=== PATIENT | male | born 1965 | race Caucasian/White ===

== ENCOUNTER 2020-05-03 19:54 | Inpatient (IN) | payer BC ==
[2020-05-03] MEDS ORDERED: MORPHINE SULFATE 2 MG/ML SYRINGE IV STA (20:41)
--- NOTE | 2020-05-03 20:43 | ED ---
General Adult HPI - General Chief complaint: Shortness of Breath Stated complaint: COVID+/Chest Pain/Vomiting/SOB/Fever Time Seen by Provider: 05/03/20 20:04 Source: patient, RN notes reviewed, old records reviewed Mode of arrival: ambulatory Limitations: no limitations - History of Present Illness Initial comments: 54-year-old male patient to ED for evaluation of coronavirus infection. Patient was diagnosed on Friday 04/27. That was the day he first began experiencing symptoms. Since then he is reporting that he has been coughing with some shortness of breath and some generalized chest pain with coughing. Patient also reports that he is a diabetic type II who is supposed to be on insulin however he has not his medication to last 9 months to see his area and does not have a doctor. He has not been checking his sugars. Systemic: Pt denies fatigue, fever/chills, rash. Pt denies weakness, night sweats, weight loss. Neuro: Pt denies headache, visual disturbances, syncope or pre-syncope. HEENT: Pt denies ocular discharge or irritation, otalgia, rhinorrhea, pharyngitis or notable lymphadenopathy. Cardiopulmonary: Pt denies heart palpitations, dyspnea on exertion. Abdominal/GI: Pt denies abdominal pain, n/v/d. : Pt denies dysuria, burning w/ urination, frequency/urgency. Denies new onset urinary or bowel incontinence. MSK: Pt denies myalgia, loss of strength or function in extremities. Neuro: Pt denies new onset weakness, paresthesias. - Related Data Home Medications Medication Instructions Recorded Confirmed No Known Home Medications 05/03/20 05/03/20 Allergies Allergy/AdvReac Type Severity Reaction Status Date / Time No Known Allergies Allergy Verified 05/03/20 22:30 Review of Systems ROS Statement: Those systems with pertinent positive or pertinent negative responses have been documented in the HPI. ROS Other: All systems not noted in ROS Statement are negative. Past Medical History Past Medical History: Diabetes Mellitus Additional Past Medical History / Comment(s): Covid Dx - 04/27/2020 History of Any Multi-Drug Resistant Organisms: None Reported Past Surgical History: Hernia Repair Additional Past Surgical History / Comment(s): eye surgery Past Psychological History: No Psychological Hx Reported Smoking Status: Never smoker Past Alcohol Use History: Occasional Past Drug Use History: None Reported General Exam - General Exam Comments Initial Comments: Constitutional: NAD, AOX3, Pt has pleasant affect. HEENT: NC/AT, trachea midline, neck supple, no lymphadenopathy. Posterior pharynx non erythematous, without exudates. External ears appear normal, without discharge. Mucous membranes moist. Eyes PERRLA, EOM intact. There is no scleral icterus. No pallor noted. Cardiopulmonary: RRR, no murmurs, rubs or gallops, no JVD noted. Lungs CTAB in anterior and posterior lee. No peripheral edema. Abdominal exam: Abdomen soft and non-distended. Abdomen non-tender to palpation in all 4 quadrants. Bowel sounds active in LLQ. No hepatosplenomegaly. No ecchymosis Neuro: CN II-XII grossly intact. No nuchal rigidity. No raccon eyes, no platt sign, no hemotympanum. No cervical spinal tenderness. MSK: No posterior calf tenderness bilaterally, homans sign negative bilaterally. Posterior tibialis and radial pulse +2 bilaterally. Sensation intact in upper and lower extremities. Full active ROM in upper and lower extremities, 5/5 stregnth. Limitations: no limitations Course Vital Signs 05/03/20 05/03/20 05/03/20 19:58 21:01 21:30 Temperature 100.9 F H 100.0 F H Pulse Rate 121 H 99 Respiratory 30 H 20 Rate Blood Pressure 108/68 109/62 O2 Sat by Pulse 97 98 Oximetry 05/03/20 22:09 Temperature Pulse Rate 93 Respiratory 20 Rate Blood Pressure 101/64 O2 Sat by Pulse 98 Oximetry Medical Decision Making - Medical Decision Making 54-year-old male patient ED for evaluation of shortness of breath cough fever. Patient diagnosed the coronavirus 6 days ago. Worsening shortness of breath. Chest pain primarily with coughing. Vital signs did display some mild tachypnea. Oxygen saturation are maintained adequately. Patient is display some mild work of breathing. CT of the chest x-ray revealed bilateral pneumonia. No pulmonary embolism. EKG is nonischemic. She'll be admitted to hospital for further evaluation. Case discussed with Dr. Mercedes. Admitting physician Dr. Alexis. - Lab Data Result diagrams: 05/03/20 20:46 05/03/20 20:46 Lab Results 05/03/20 05/03/20 05/03/20 Range/Units 20:46 20:46 20:46 WBC 5.2 (3.8-10.6) k/uL RBC 5.86 (4.30-5.90) m/uL Hgb 17.4 (13.0-17.5) gm/dL Hct 53.0 (39.0-53.0) % MCV 90.4 (80.0-100.0) fL MCH 29.7 (25.0-35.0) pg MCHC 32.9 (31.0-37.0) g/dL RDW 12.2 (11.5-15.5) % Plt Count 135 L (150-450) k/uL MPV 8.9 Neutrophils % 80 % Lymphocytes % 13 % Monocytes % 5 % Eosinophils % 1 % Basophils % 1 % Neutrophils # 4.2 (1.3-7.7) k/uL Lymphocytes # 0.7 L (1.0-4.8) k/uL Monocytes # 0.3 (0-1.0) k/uL Eosinophils # 0.0 (0-0.7) k/uL Basophils # 0.1 (0-0.2) k/uL PT 9.7 (9.0-12.0) sec INR 0.9 (<1.2) APTT 24.7 (22.0-30.0) sec D-Dimer 0.98 H (<0.60) mg/L FEU Sodium 138 (137-145) mmol/L Potassium 4.4 (3.5-5.1) mmol/L Chloride 102 (98-107) mmol/L Carbon Dioxide 27 (22-30) mmol/L Anion Gap 9 mmol/L BUN 17 (9-20) mg/dL Creatinine 1.08 (0.66-1.25) mg/dL Est GFR (CKD-EPI)AfAm >90 (>60 ml/min/1.73 sqM) Est GFR (CKD-EPI)NonAf 78 (>60 ml/min/1.73 sqM) Glucose 149 H (74-99) mg/dL Plasma Lactic Acid Quinn (0.7-2.0) mmol/L Calcium 9.2 (8.4-10.2) mg/dL Magnesium 1.8 (1.6-2.3) mg/dL Total Bilirubin 0.7 (0.2-1.3) mg/dL AST 33 (17-59) U/L ALT 26 (4-49) U/L Alkaline Phosphatase 63 (38-126) U/L Lactate Dehydrogenase 585 (313-618) U/L Troponin I (0.000-0.034) ng/mL C-Reactive Protein 22.8 H (<10.0) mg/L Total Protein 7.6 (6.3-8.2) g/dL Albumin 4.3 (3.5-5.0) g/dL Urine Color Urine Appearance (Clear) Urine pH (5.0-8.0) Ur Specific Rumely (1.001-1.035) Urine Protein (Negative) Urine Glucose (UA) (Negative) Urine Ketones (Negative) Urine Blood (Negative) Urine Nitrite (Negative) Urine Bilirubin (Negative) Urine Urobilinogen (<2.0) mg/dL Ur Leukocyte Esterase (Negative) Urine RBC (0-5) /hpf Urine WBC (0-5) /hpf Ur Squamous Epith Cells (0-4) /hpf Urine Mucus (None) /hpf Acetone, Qual Negative (Negative) Coronavirus (PCR) (Not Detectd) 05/03/20 05/03/20 05/03/20 Range/Units 20:46 20:46 21:01 WBC (3.8-10.6) k/uL RBC (4.30-5.90) m/uL Hgb (13.0-17.5) gm/dL Hct (39.0-53.0) % MCV (80.0-100.0) fL MCH (25.0-35.0) pg MCHC (31.0-37.0) g/dL RDW (11.5-15.5) % Plt Count (150-450) k/uL MPV Neutrophils % % Lymphocytes % % Monocytes % % Eosinophils % % Basophils % % Neutrophils # (1.3-7.7) k/uL Lymphocytes # (1.0-4.8) k/uL Monocytes # (0-1.0) k/uL Eosinophils # (0-0.7) k/uL Basophils # (0-0.2) k/uL PT (9.0-12.0) sec INR (<1.2) APTT (22.0-30.0) sec D-Dimer (<0.60) mg/L FEU Sodium (137-145) mmol/L Potassium (3.5-5.1) mmol/L Chloride (98-107) mmol/L Carbon Dioxide (22-30) mmol/L Anion Gap mmol/L BUN (9-20) mg/dL Creatinine (0.66-1.25) mg/dL Est GFR (CKD-EPI)AfAm (>60 ml/min/1.73 sqM) Est GFR (CKD-EPI)NonAf (>60 ml/min/1.73 sqM) Glucose (74-99) mg/dL Plasma Lactic Acid Quinn 2.6 H* (0.7-2.0) mmol/L Calcium (8.4-10.2) mg/dL Magnesium (1.6-2.3) mg/dL Total Bilirubin (0.2-1.3) mg/dL AST (17-59) U/L ALT (4-49) U/L Alkaline Phosphatase (38-126) U/L Lactate Dehydrogenase (313-618) U/L Troponin I <0.012 (0.000-0.034) ng/mL C-Reactive Protein (<10.0) mg/L Total Protein (6.3-8.2) g/dL Albumin (3.5-5.0) g/dL Urine Color Yellow Urine Appearance Clear (Clear) Urine pH 7.5 (5.0-8.0) Ur Specific Rumely 1.027 (1.001-1.035) Urine Protein 1+ H (Negative) Urine Glucose (UA) 1+ H (Negative) Urine Ketones 1+ H (Negative) Urine Blood Negative (Negative) Urine Nitrite Negative (Negative) Urine Bilirubin Negative (Negative) Urine Urobilinogen 2.0 (<2.0) mg/dL Ur Leukocyte Esterase Negative (Negative) Urine RBC 1 (0-5) /hpf Urine WBC <1 (0-5) /hpf Ur Squamous Epith Cells <1 (0-4) /hpf Urine Mucus Rare H (None) /hpf Acetone, Qual (Negative) Coronavirus (PCR) (Not Detectd) 05/03/20 Range/Units 21:01 WBC (3.8-10.6) k/uL RBC (4.30-5.90) m/uL Hgb (13.0-17.5) gm/dL Hct (39.0-53.0) % MCV (80.0-100.0) fL MCH (25.0-35.0) pg MCHC (31.0-37.0) g/dL RDW (11.5-15.5) % Plt Count (150-450) k/uL MPV Neutrophils % % Lymphocytes % % Monocytes % % Eosinophils % % Basophils % % Neutrophils # (1.3-7.7) k/uL Lymphocytes # (1.0-4.8) k/uL Monocytes # (0-1.0) k/uL Eosinophils # (0-0.7) k/uL Basophils # (0-0.2) k/uL PT (9.0-12.0) sec INR (<1.2) APTT (22.0-30.0) sec D-Dimer (<0.60) mg/L FEU Sodium (137-145) mmol/L Potassium (3.5-5.1) mmol/L Chloride (98-107) mmol/L Carbon Dioxide (22-30) mmol/L Anion Gap mmol/L BUN (9-20) mg/dL Creatinine (0.66-1.25) mg/dL Est GFR (CKD-EPI)AfAm (>60 ml/min/1.73 sqM) Est GFR (CKD-EPI)NonAf (>60 ml/min/1.73 sqM) Glucose (74-99) mg/dL Plasma Lactic Acid Quinn (0.7-2.0) mmol/L Calcium (8.4-10.2) mg/dL Magnesium (1.6-2.3) mg/dL Total Bilirubin (0.2-1.3) mg/dL AST (17-59) U/L ALT (4-49) U/L Alkaline Phosphatase (38-126) U/L Lactate Dehydrogenase (313-618) U/L Troponin I (0.000-0.034) ng/mL C-Reactive Protein (<10.0) mg/L Total Protein (6.3-8.2) g/dL Albumin (3.5-5.0) g/dL Urine Color Urine Appearance (Clear) Urine pH (5.0-8.0) Ur Specific Rumely (1.001-1.035) Urine Protein (Negative) Urine Glucose (UA) (Negative) Urine Ketones (Negative) Urine Blood (Negative) Urine Nitrite (Negative) Urine Bilirubin (Negative) Urine Urobilinogen (<2.0) mg/dL Ur Leukocyte Esterase (Negative) Urine RBC (0-5) /hpf Urine WBC (0-5) /hpf Ur Squamous Epith Cells (0-4) /hpf Urine Mucus (None) /hpf Acetone, Qual (Negative) Coronavirus (PCR) Detected A (Not Detectd) - EKG Data -: EKG Interpreted by Me (and Dr. Mercedes ) EKG Comments: ventricular rate 100, WI interval 134, QRS 74, QT/QTC 312/402. Normal sinus rhythm. possible left atrial enlargement. Left fascicular block. No concern for acute ischemia. Disposition Clinical Impression: COVID-19, Chest pain Disposition: ADMITTED IP TO THIS HOSP Condition: Serious Is patient prescribed a controlled substance at d/c from ED?: No Referrals: None,Stated [Primary Care Provider] - 1-2 days
[2020-05-03] MEDS ORDERED: ONDANSETRON 4 MG/2 ML VIAL IVP STA (20:57)
[2020-05-03 21:09] LABS: Basophils # (A) 0.1 k/uL (0-0.2); Basophils % (A) 1 %; Eosinophils % (A) 1 %; HGB 17.4 gm/dL (13.0-17.5); Lymphocytes # (A) 0.7 k/uL (1.0-4.8); Lymphocytes % (A) 13 %; MCH 29.7 pg (25.0-35.0); MCHC 32.9 g/dL (31.0-37.0); MCV 90.4 fL (80.0-100.0); Mean Platelet Volume 8.9; Monocytes # (A) 0.3 k/uL (0-1.0); Monocytes % (A) 5 %; Neutrophils # (A) 4.2 k/uL (1.3-7.7); Neutrophils % (A) 80 %; Platelet Count 135 k/uL (150-450); RBC 5.86 m/uL (4.30-5.90); RDW 12.2 % (11.5-15.5); WBC 5.2 k/uL (3.8-10.6)
--- NOTE | 2020-05-03 21:10 | XR ---
EXAMINATION TYPE: XR chest 1V portable DATE OF EXAM: 05/03/2020 COMPARISON: None INDICATION: Covid TECHNIQUE: Single frontal view of the chest is obtained. FINDINGS: The heart size is normal. The pulmonary vasculature is normal. Mild bibasilar minimal infiltrates are present. Findings are nonspecific but can be related to atypic al pneumonia in the proper clinical setting. IMPRESSION: 1. Mild bibasilar minimal infiltrates are nonspecific. Correlate for atypical pneumonia.
[2020-05-03 21:11] LABS: ALT 26 U/L (4-49); AST 33 U/L (17-59); African American GFR (CKD) >90 (>60 ml/min/1.73 sqM); Albumin 4.3 g/dL (3.5-5.0); Alkaline Phosphatase 63 U/L (38-126); Anion Gap 9 mmol/L; Blood Urea Nitrogen 17 mg/dL (9-20); C Reactive Protein 22.8 mg/L (<10.0); Calcium 9.2 mg/dL (8.4-10.2); Carbon Dioxide 27 mmol/L (22-30); Chloride 102 mmol/L (98-107); Glucose 149 mg/dL (74-99); LDH 585 U/L (313-618); Magnesium 1.8 mg/dL (1.6-2.3); Non-African American GFR(CKD) 78 (>60 ml/min/1.73 sqM); Potassium 4.4 mmol/L (3.5-5.1); Sodium 138 mmol/L (137-145); Total Bilirubin 0.7 mg/dL (0.2-1.3); Total Protein 7.6 g/dL (6.3-8.2)
[2020-05-03 21:12] LABS: INR 0.9 (<1.2); Partial Thromboplastin Time 24.7 sec (22.0-30.0); Prothrombin Time 9.7 sec (9.0-12.0)
[2020-05-03] MEDS ORDERED: SODIUM CHLORIDE 0.9% 500 ML 500 ML IV ONE ×2 (21:22→22:49)
[2020-05-03 21:35] LABS: Appearance,Urine Clear (Clear); Bilirubin,Urine Negative (Negative); Blood,Urine Negative (Negative); Color,Urine Yellow; Glucose,Urine (UA) 1+ (Negative); Ketones,Urine 1+ (Negative); Leukocyte Esterase,Urine Negative (Negative); Mucus,Urine Rare /hpf; Nitrite,Urine Negative (Negative); PH, Urine 7.5 (5.0-8.0); Protein,Urine 1+ (Negative); RBC,Urine 1 /hpf (0-5); Specific Gravity,Urine 1.027 (1.001-1.035); Squamous Epithelial Cell,Urine <1 /hpf (0-4); WBC,Urine <1 /hpf (0-5)
[2020-05-03 21:38] LABS: D-Dimer 0.98 mg/L FEU (<0.60)
[2020-05-03] MEDS ORDERED: ACETAMINOPHEN TAB 500 MG TAB PO STA (22:00)
--- NOTE | 2020-05-03 22:13 | CT ---
EXAMINATION TYPE: CT chest angio for PE DATE OF EXAM: 05/03/2020 COMPARISON: None HISTORY: Shortness of breath, covid+ and chest pain. CT DLP: 493.5 mGycm Automated exposure control for dose reduction was used. CONTRAST: Performed with IV Contrast, patient injected with 100ml mL of Isovue 370. There are 3-D post processed images. There is coarse patchy interstitial and airspace infiltrate in the mid and lower lung lee. There i s also involvement of the lung apices. There is no mediastinal adenopathy. Thoracic aorta is intact. There is no aneurysm or dissection. There is 2 cm right bronchial lymph nodes. There are a few other smaller right bronchial lymph nodes. Thoracic aorta is intact. There is no aneurysm or dissection. Th ere is mild pleural thickening at the posterior lung bases. There is normal contrast opacification of the pulmonary arteries. There are no filling defects. The b ivy thorax is intact. Thoracic vertebra appear intact. Sternum is intact. IMPRESSION: No evidence of pulmonary embolism. Bilateral pneumonia and right bronchial adenopathy.
[2020-05-03] MEDS ORDERED: ACETAMINOPHEN TAB 325 MG TAB PO PRN (22:36)
[2020-05-03] MEDS ORDERED: NALOXONE 0.4 MG/ML 1 ML VIAL IV PRN (22:36)
[2020-05-03] MEDS ORDERED: ASPIRIN 81 MG PO STA (22:36)
[2020-05-03] MEDS ORDERED: ALBUTEROL HFA INHALER INHALATION STA (22:46)
[2020-05-04 06:33] VITALS: RESP 18
[2020-05-04 07:43] LABS: Glucose,Whole Blood 179 mg/dL (75-99)
[2020-05-04 08:06] LABS: Ferritin 831.8 ng/mL (22.0-322.0)
[2020-05-04] MEDS: INSULIN ASPART (NovoLOG) 100 UNIT/ML VIAL SQ SCH ×2 (08:16→12:33)
[2020-05-04] MEDS ORDERED: PANTOPRAZOLE 40 MG/10 ML VIAL IVP SCH (09:45)
[2020-05-04] MEDS ORDERED: dexAMETHasone 2 MG TAB PO SCH (10:15)
--- NOTE | 2020-05-04 11:16 | P.DS ---
Providers Date of admission: 05/03/20 22:21 Attending physician: Warren Aelxis MD Consults: 05/03/20 22:36 Consult Physician Stat Consulting Provider: Eryn Arredondo Consult Reason/Comments: covid pneumonia Do you want consulting provider notified?: Yes Consult Physician Stat Consulting Provider: Fabian Lomax Consult Reason/Comments: chest pain Do you want consulting provider notified?: Yes Primary care physician: Stated None Hospital Course: As mentioned in HPI Patient Condition at Discharge: Serious Plan - Discharge Summary Discharge Rx Participant: No New Discharge Prescriptions: New glipiZIDE [Glucotrol] 5 mg PO AC-BRKFST #20 tab dexAMETHasone [Hexadrol] 6 mg PO DAILY #10 tab Zinc Sulfate [Orazinc] 220 mg PO DAILY #10 capsule Famotidine [Pepcid] 20 mg PO BID #20 tablet Ascorbic Acid [Vitamin C] 500 mg PO BID #20 tablet Discharge Medication List Ascorbic Acid [Vitamin C] 500 mg PO BID #20 tablet 05/04/20 [Rx] Famotidine [Pepcid] 20 mg PO BID #20 tablet 05/04/20 [Rx] Zinc Sulfate [Orazinc] 220 mg PO DAILY #10 capsule 05/04/20 [Rx] dexAMETHasone [Hexadrol] 6 mg PO DAILY #10 tab 05/04/20 [Rx] glipiZIDE [Glucotrol] 5 mg PO AC-BRKFST #20 tab 05/04/20 [Rx] Follow up Appointment(s)/Referral(s): Pablo Romero MD [REFERRING] - 1 Week Discharge Disposition: HOME SELF-CARE
--- NOTE | 2020-05-04 11:16 | P.HPIM ---
History of Present Illness This is a pleasant 54-year-old male came in with compensative chest pressure like sensation mild to by his 2/10 in severity and shortness of breath patient was recently diagnosed with coronary 19 as an outpatient. Rest since patient is comparing of chest pressure patient was admitted. Patient apparently is a known diabetic and doesn't take any medications for that patient recently moved to [place]. Patient is complaining of some subjective shortness of breath mild chest pressure denied any diaphoresis troponins were negative. Cardiology was consulted. Patient is saturating well without any oxygen although complaining of some GI symptoms of unable to eat anything nauseous. Patient was started on Protonix will the advance her diet if he can tolerate and if cleared by pulmonology and cardiology patient will be discharged today on Decadron and as long as he is on Decadron patient will be on glipizide. does have fever although low-grade mildly elevated d-dimer with negative CTA for pulmonary embolism. Review of Systems REVIEW OF SYSTEMS: CONSTITUTIONAL: As mentioned in HPI HEENT: No recent visual problems or hearing problems. Denied any sore throat. CARDIOVASCULAR: No orthopnea, PND, no palpitations, no syncope. PULMONARY: no hemoptysis. GASTROINTESTINAL: No diarrhea, no vomiting, no abdominal pain. NEUROLOGICAL: No headaches, no weakness, no numbness. HEMATOLOGICAL: Denies any bleeding or petechiae. GENITOURINARY: Denies any burning micturition, frequency, or urgency. MUSCULOSKELETAL/RHEUMATOLOGICAL: Denies any joint pain, swelling, or any muscle pain. ENDOCRINE: Denies any polyuria or polydipsia. The rest of the 14-point review of systems is negative. Past Medical History Past Medical History: Diabetes Mellitus Additional Past Medical History / Comment(s): Covid Dx - 04/27/2020 History of Any Multi-Drug Resistant Organisms: None Reported Past Surgical History: Hernia Repair Additional Past Surgical History / Comment(s): eye surgery Additional Past Anesthesia/Blood Transfusion Reaction / Comment(s): difficulty waking with anesthesia Past Psychological History: No Psychological Hx Reported Smoking Status: Never smoker Past Alcohol Use History: Occasional Past Drug Use History: None Reported - Past Family History Mother Family Medical History: Cancer Additional Family Medical History / Comment(s): lung cancer with mets Medications and Allergies Home Medications Medication Instructions Recorded Confirmed Type Ascorbic Acid [Vitamin C] 500 mg PO BID #20 tablet 05/04/20 Rx Famotidine [Pepcid] 20 mg PO BID #20 tablet 05/04/20 Rx Zinc Sulfate [Orazinc] 220 mg PO DAILY #10 capsule 05/04/20 Rx dexAMETHasone [Hexadrol] 6 mg PO DAILY #10 tab 05/04/20 Rx glipiZIDE [Glucotrol] 5 mg PO AC-BRKFST #20 tab 05/04/20 Rx Allergies Allergy/AdvReac Type Severity Reaction Status Date / Time No Known Allergies Allergy Verified 05/03/20 22:30 Physical Exam Vitals: Vital Signs Temp Pulse Pulse Resp BP BP Pulse Ox 05/04/20 08:21 97 05/04/20 05:00 98.0 F 78 18 109/73 96 05/04/20 00:42 98.8 F 89 20 96/65 96 05/03/20 23:45 99.4 F 84 20 94/58 96 05/03/20 23:15 99.9 F H 87 20 92/58 97 05/03/20 22:09 93 20 101/64 98 05/03/20 21:30 100.0 F H 05/03/20 21:01 99 20 109/62 98 05/03/20 19:58 100.9 F H 121 H 30 H 108/68 97 Intake and Output 05/03/20 05/04/20 05/04/20 22:59 06:59 14:59 Other: # Voids 1 Weight 104 kg PHYSICAL EXAMINATION: GENERAL: The patient is alert and oriented x3, not in any acute distress. Well developed, well nourished. HEENT: Pupils are round and equally reacting to light. EOMI. No scleral icterus. No conjunctival pallor. Normocephalic, atraumatic. No pharyngeal erythema. No thyromegaly. CARDIOVASCULAR: S1 and S2 present. No murmurs, rubs, or gallops. PULMONARY: Chest is clear to auscultation, no wheezing or crackles. ABDOMEN: Soft, nontender, nondistended, normoactive bowel sounds. No palpable organomegaly. MUSCULOSKELETAL: No joint swelling or deformity. EXTREMITIES: No cyanosis, clubbing, or pedal edema. NEUROLOGICAL: Gross neurological examination did not reveal any focal deficits. SKIN: No rashes. Note: Because of COVID 19 isolation, some of the history and physical exam findings are indirect and obtained from nursing staff, and other physician examinations to avoid unnecessary contact with the patient. Results CBC & Chem 7: 05/03/20 20:46 05/03/20 20:46 Labs: Abnormal Lab Results - Last 24 Hours (Table) 05/03/20 05/03/20 05/03/20 Range/Units 20:46 20:46 20:46 Plt Count 135 L (150-450) k/uL Lymphocytes # 0.7 L (1.0-4.8) k/uL D-Dimer 0.98 H (<0.60) mg/L FEU Glucose 149 H (74-99) mg/dL POC Glucose (mg/dL) (75-99) mg/dL Plasma Lactic Acid Quinn (0.7-2.0) mmol/L Ferritin 831.8 H (22.0-322.0) ng/mL C-Reactive Protein 22.8 H (<10.0) mg/L Urine Protein (Negative) Urine Glucose (UA) (Negative) Urine Ketones (Negative) Urine Mucus (None) /hpf Coronavirus (PCR) (Not Detectd) 05/03/20 05/03/20 05/03/20 Range/Units 20:46 21:01 21:01 Plt Count (150-450) k/uL Lymphocytes # (1.0-4.8) k/uL D-Dimer (<0.60) mg/L FEU Glucose (74-99) mg/dL POC Glucose (mg/dL) (75-99) mg/dL Plasma Lactic Acid Quinn 2.6 H* (0.7-2.0) mmol/L Ferritin (22.0-322.0) ng/mL C-Reactive Protein (<10.0) mg/L Urine Protein 1+ H (Negative) Urine Glucose (UA) 1+ H (Negative) Urine Ketones 1+ H (Negative) Urine Mucus Rare H (None) /hpf Coronavirus (PCR) Detected A (Not Detectd) 05/04/20 Range/Units 07:43 Plt Count (150-450) k/uL Lymphocytes # (1.0-4.8) k/uL D-Dimer (<0.60) mg/L FEU Glucose (74-99) mg/dL POC Glucose (mg/dL) 179 H (75-99) mg/dL Plasma Lactic Acid Quinn (0.7-2.0) mmol/L Ferritin (22.0-322.0) ng/mL C-Reactive Protein (<10.0) mg/L Urine Protein (Negative) Urine Glucose (UA) (Negative) Urine Ketones (Negative) Urine Mucus (None) /hpf Coronavirus (PCR) (Not Detectd) Thrombosis Risk Factor Assmnt - Choose All That Apply Any of the Below Risk Factors Present?: Yes Each Factor Represents 1 point: Age 41-60 years, Serious lung disease incl. pneumonia (< 1month) Other Risk Factors: No Other congenital or acquired thrombophilia - If yes, enter type in comment: No Thrombosis Risk Factor Assessment Total Risk Factor Score: 2 Thrombosis Risk Factor Assessment Level: Low Risk Assessment and Plan Plan: -Chest pressure: Rule out acute coronary syndromes patient's symptoms appear to be secondary to cough. 19. Cardiology evaluated the patient if cleared patient will be discharged today not sure whether patient will need any more workup. -Shortness of breath, fever, systemic inflammatory response syndrome: Secondary to quit 19. Patient was started on Decadron. Patient is saturating well will ablate the patient if his saturations are okay patient will be provided with a pulse oximeter and patient will be discharged on Decadron for 10 days with mitchel chowdhury as I expect his blood sugars to go up although they're pretty fairly well controlled at this time. Patient was asked to come back if his oxygen saturation goes down and patient feels worse. -Type 2 diabetes mellitus not on any medication patient doesn't have a PCP patient is referred to PCP. Further workup with hemoglobin A1c as an outpatient. -Rule out pulmonary embolism -Possible gastritis: Secondary to sepsis. Patient will be discharged on Pepcid with will be given Protonix here.
[2020-05-04 11:42] LABS: Glucose,Whole Blood 149 mg/dL (75-99)
[2020-05-04 12:41] VITALS: BP 110/75; PULSE 83; TEMP 98.8
--- NOTE | 2020-05-04 14:16 | P.CRDCN ---
History of Present Illness Consult reason: chest pain History of present illness: HISTORY OF PRESENTING ILLNESS This is a pleasant 54-year-old male past medical history significant for diabetes mellitus. 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 We have been asked to see in consultation for chest pain. He was diagnosed with COVID 04/27. He was initially at home and maintaining until 2 days ago when he started feeling increasingly short of breath, coughing more frequent and chest pain when he coughs. The chest pain was precipitated by coughing and not related to exertion or activity. The pain did not radiate to the back, arm, neck or jaw. DIAGNOSTICS EKG reveals sinus mechanism with left anterior fasicular block heart rate 100. Chest xray bibasilar infiltrates. CTA negative for PE with bilateral pneumonia and right bronchial adenopathy Laboratory reviewed, cardiac enzymes negative 3, WBC 5.2, hemoglobin 17.4, platelets 135, d-dimer 0.98, sodium 138, potassium 4.4, creatinine 1.08, lactic acid on admission 2. 6 repeat after hydration 1.0. He takes no daily cardiac medications. REVIEW OF SYSTEMS At the time of my exam: CONSTITUTIONAL: Denies fever or chills. CARDIOVASCULAR: Denies chest pain, shortness of breath, orthopnea, PND or palp itations. RESPIRATORY: Complains of cough. GASTROINTESTINAL: Denies abdominal pain, diarrhea, constipation, nausea or vomiting. MUSCULOSKELETAL: Denies myalgias. NEUROLOGIC: Denies numbness, tingling or weakness. ENDOCRINE: Denies fatigue, weight change, polydipsia or polyurina. GENITOURINARY: Denies burning, hematuria or urgency with micturation. HEMATOLOGIC: Denies history of anemia or bleeding. PHYSICAL EXAMINATION Blood pressure 110/75 heart rate 83 afebrile and maintaining oxygen saturation on room air. CONSTITUTIONAL: No apparent distress. HEENT: Head is normocephalic. Pupils are equal, round. Sclerae anicteric. Mucous membranes of the mouth are moist. No JVD. No carotid bruit. CHEST EXAMINATION: Lungs are clear to auscultation. No chest wall tenderness is noted on palpation or with deep breathing. HEART EXAMINATION: Regular rate and rhythm. S1, S2 heard. No murmurs, gallops or rub. ABDOMEN: Soft, nontender. Positive bowel sounds. EXTREMITIES: 2+ peripheral pulses, no lower extremity edema and no calf tenderness. NEUROLOGIC EXAMINATION: Patient is awake, alert and oriented x3. ASSESSMENT Covid 19 Chest pain, pleuritic Diabetes mellitus PLAN Pain is atypical for angina, pleuritic in nature secondary to pneumonia. An acute coronary event has been ruled out. No further cardiac work-up at this time. Recommend outpatient stress test and echocardiogram in 3-4 weeks when COVID has resolved. Thank you kindly for this consultation. Nurse Practitioner note has been reviewed, I agree with a documented findings and plan of care. Patient was seen and examined. Past Medical History Past Medical History: Diabetes Mellitus Additional Past Medical History / Comment(s): Covid Dx - 04/27/2020 History of Any Multi-Drug Resistant Organisms: None Reported Past Surgical History: Hernia Repair Additional Past Surgical History / Comment(s): eye surgery Additional Past Anesthesia/Blood Transfusion Reaction / Comment(s): difficulty waking with anesthesia Past Psychological History: No Psychological Hx Reported Smoking Status: Never smoker Past Alcohol Use History: Occasional Past Drug Use History: None Reported - Past Family History Mother Family Medical History: Cancer Additional Family Medical History / Comment(s): lung cancer with mets Medications and Allergies Home Medications Medication Instructions Recorded Confirmed Type Ascorbic Acid [Vitamin C] 500 mg PO BID #20 tablet 05/04/20 Rx Famotidine [Pepcid] 20 mg PO BID #20 tablet 05/04/20 Rx Zinc Sulfate [Orazinc] 220 mg PO DAILY #10 capsule 05/04/20 Rx dexAMETHasone [Hexadrol] 6 mg PO DAILY #10 tab 05/04/20 Rx glipiZIDE [Glucotrol] 5 mg PO AC-BRKFST #20 tab 05/04/20 Rx Allergies Allergy/AdvReac Type Severity Reaction Status Date / Time No Known Allergies Allergy Verified 05/03/20 22:30 Physical Exam Vitals: Vital Signs Temp Pulse Pulse Resp BP BP Pulse Ox 05/04/20 11:00 98.8 F 83 18 110/75 96 05/04/20 08:21 97 05/04/20 05:00 98.0 F 78 18 109/73 96 05/04/20 00:42 98.8 F 89 20 96/65 96 05/03/20 23:45 99.4 F 84 20 94/58 96 05/03/20 23:15 99.9 F H 87 20 92/58 97 12/14/20 22:09 93 20 101/64 98 05/03/20 21:30 100.0 F H 05/03/20 21:01 99 20 109/62 98 05/03/20 19:58 100.9 F H 121 H 30 H 108/68 97 Intake and Output 05/03/20 05/04/20 05/04/20 22:59 06:59 14:59 Other: Voiding Method Toilet # Voids 1 Weight 104 kg Results 05/03/20 20:46 05/03/20 20:46 Cardiac Enzymes 05/03/20 05/03/20 05/03/20 Range/Units 20:46 20:46 23:38 AST 33 (17-59) U/L Lactate Dehydrogenase 585 (313-618) U/L Troponin I <0.012 <0.012 (0.000-0.034) ng/mL 05/04/20 Range/Units 03:20 AST (17-59) U/L Lactate Dehydrogenase (313-618) U/L Troponin I <0.012 (0.000-0.034) ng/mL Coagulation 05/03/20 Range/Units 20:46 PT 9.7 (9.0-12.0) sec APTT 24.7 (22.0-30.0) sec CBC 05/03/20 Range/Units 20:46 WBC 5.2 (3.8-10.6) k/uL RBC 5.86 (4.30-5.90) m/uL Hgb 17.4 (13.0-17.5) gm/dL Hct 53.0 (39.0-53.0) % Plt Count 135 L (150-450) k/uL Comprehensive Metabolic Panel 05/03/20 Range/Units 20:46 Sodium 138 (137-145) mmol/L Potassium 4.4 (3.5-5.1) mmol/L Chloride 102 (98-107) mmol/L Carbon Dioxide 27 (22-30) mmol/L BUN 17 (9-20) mg/dL Creatinine 1.08 (0.66-1.25) mg/dL Glucose 149 H (74-99) mg/dL Calcium 9.2 (8.4-10.2) mg/dL AST 33 (17-59) U/L ALT 26 (4-49) U/L Alkaline Phosphatase 63 (38-126) U/L Total Protein 7.6 (6.3-8.2) g/dL Albumin 4.3 (3.5-5.0) g/dL Current Medications Generic Name Dose Route Start Last Admin Trade Name Freq PRN Reason Stop Dose Admin Acetaminophen 650 mg 05/03/20 22:36 Acetaminophen Tab 325 Mg Tab PO Q6HR PRN Mild Pain or Fever > 100.5 Dexamethasone 6 mg 05/04/20 10:15 05/04/20 10:58 Dexamethasone 2 Mg Tab PO 6 mg DAILY NILS Administration Glipizide 5 mg 05/05/20 07:30 Glipizide 5 Mg Tab PO AC-BRKFST NILS Insulin Aspart 0 unit 05/04/20 07:30 05/04/20 12:33 Insulin Aspart (Novolog) 100 Unit/Ml Vial SQ 1 unit ACHS NILS Administration Protocol Naloxone HCl 0.2 mg 05/03/20 22:36 Naloxone 0.4 Mg/Ml 1 Ml Vial IV Q2M PRN Opioid Reversal Pantoprazole Sodium 40 mg 05/04/20 09:45 05/04/20 10:08 Pantoprazole 40 Mg/10 Ml Vial IVP 40 mg DAILY NILS Administration Intake and Output 05/03/20 05/04/20 05/04/20 22:59 06:59 14:59 Other: Voiding Method Toilet # Voids 1 Weight 104 kg 05/03/20 20:46 05/03/20 20:46
--- NOTE | 2020-05-04 15:50 | CONS ---
CONSULTATION PULMONARY/CRITICAL CARE CONSULTATION: DATE OF SERVICE: 05/04/2020 This is a 54-year-old male who came to the emergency department for evaluation of potential coronavirus infection. The patient was diagnosed positive on April 27. That was the day he first began experiencing symptoms. His symptoms include a mild cough, with some mild shortness of breath, particularly on exertion, some chest pain with coughing as well as some fatigue and weakness. The patient does have a history of diabetes. Anyway, the patient just recently moved here from [place], [place]. He does not have a family doctor in the area. He came into the ER to be evaluated. Currently he is doing relatively well. The patient has not been feeling well, as I mentioned, for about 8 days. Currently he is on room air. He is not receiving any IV fluids. I question as to why the patient was actually admitted. The patient should not have been admitted. He does have a history of diabetes but does not have a doctor in the area. HOME MEDICATIONS: None. He should be on something for his diabetes, but again he does not have a doctor in the area. ALLERGIES: ALLERGIES are also DENIED. PAST MEDICAL HISTORY: His past medical history includes diabetes mellitus. He also tested positive for COVID- 19 infection on April 27. SURGICAL HISTORY: His surgical history includes hernia repair and eye surgery. SOCIAL HISTORY: Negative for tobacco use or illicit drug use. He drinks alcohol occasionally. FAMILY HISTORY: Noncontributory. REVIEW OF SYSTEMS: CONSTITUTIONAL: Fatigue, weakness. NEUROLOGIC: Negative. HEENT: Negative. CARDIOVASCULAR: Negative. PULMONARY: Mild cough and shortness of breath. No phlegm. GI: Nausea. : Negative. RHEUMATOLOGIC: Negative. IMMUNOLOGIC: Negative. ENDOCRINOLOGIC: Negative. DERMATOLOGIC: Negative. PHYSICAL EXAMINATION: VITAL SIGNS: Current vital signs are reviewed. Temperature is 98, heart rate 83, respiratory rate 18, blood pressure 110/75, mean 86. Room-air saturation is 97%. GENERAL APPEARANCE: He appears in no acute distress. No respiratory distress. HEENT: Examination is grossly unremarkable. NECK: Supple. Full range of motion. No adenopathy. Neck veins are flat. CARDIOVASCULAR: Examination reveals regular rhythm and rate. Heart rate mid 70s. S1, S2 normal. No murmur. LUNGS: Lungs reveal clear breath sounds. No wheezes or rhonchi. ABDOMEN: Soft. Bowel sounds are heard. EXTREMITIES: Intact. No cyanosis, clubbing or edema. SKIN: Without rash. NEUROLOGIC: Neurologic examination is nonfocal. LABS/IMAGING: Labs are reviewed. From yesterday, white count 5.2, hemoglobin 17.4, hematocrit 53, platelet count 135,000. D-dimer 0.98. Sodium 138, potassium 4.4, chloride 102, CO2 27. Anion gap is 9. BUN and creatinine were 17 and 0.8. Glucose was 149. Ferritin 831.8. C-reactive protein 22.8. Urine showed 1+ protein, 1+ glucose and 1+ ketones. Acetone was negative. COVID testing was positive. Microbiology is currently negative. A chest x-ray showed no abnormality save for some very minimal basilar atelectasis. A CTA was done. It showed no evidence of PE. It did show some patchy bilateral infiltrates consistent with COVID-19 pneumonitis. CURRENT MEDICATIONS: Current medications include Tylenol, albuterol inhaler, aspirin, Decadron, glipizide, insulin, Narcan and Protonix. ASSESSMENT: 1. Mild COVID-19 pneumonitis, with hardly any respiratory complaints, who tested positive on March 28. 2. History of diabetes mellitus. 3. No family doctor in the area. 4. Noncompliance with diabetic medication. PLAN: The patient should be discharged home. The patient should take Decadron 6 mg a day for a total of 10 days. The patient should also take zinc, vitamin C and vitamin D3. He can come back to the hospital should his situation worsen. No additional recommendations are made. He does need to find a family doctor in the area. MMODL / IJN: [id number] / MTDD
[2020-05-05] MEDS ORDERED: glipiZIDE 5 MG TAB PO SCH (07:30)
== END 2020-05-04 14:22 | disposition home or self-care (01) | DRG 177 ==
LOC: EC 19:54 → 6NMEDSUR 22:21
PROVIDERS: ADMIT Internal Medicine; ATTEND Internal Medicine
DX: U07.1 COVID-19 (principal); J12.89 Other viral pneumonia; E11.9 Type 2 diabetes mellitus without complications; I44.4 Left anterior fascicular block; T38.3X6A Underdosing of insulin and oral hypoglycemic [antidiabetic] drugs, initial encounter; Z91.128 Patient's intentional underdosing of medication regimen for other reason; Z87.19 Personal history of other diseases of the digestive system; Z86.69 Personal history of other diseases of the nervous system and sense organs; Z98.890 Other specified postprocedural states; Z80.1 Family history of malignant neoplasm of trachea, bronchus and lung
CPT/HCPCS: 36415; 71045; 71275; 80053; 81001; 82009; 82728; 83605; 83615; 83735; 84145; 84484; 85025; 85379; 85610; 85730; 86140; 87040; 87635; 93005; 94640; 96361; 96374; 96375; 99285